=== PATIENT | female | born 1970 | race Caucasian/White ===

== ENCOUNTER 2018-12-28 07:43 | Day surgery (SDC) | payer OTHER ==
[~2018-12-28 07:43] MED LIST: Bupivacaine 0.5% 50 ML MDV ONE; Lidocaine 1% with EPINEPHrine 1:100,000 50 ML MDV ONE
[2018-12-28] MEDS ORDERED: Acetaminophen 500 MG Tab PO ONE (07:45)
[2018-12-28] MEDS ORDERED: Albuterol/Ipratropium 3.0-0.5 MG/3 ML Neb Soln NEB ONE (07:45)
[2018-12-28] MEDS ORDERED: ceFAZolin 2 GM in Premix Bag 1 BAG IV ONE (07:45)
[2018-12-28] MEDS ORDERED: Dextrose 5%-Lactated Ringers 1,000 ML IV SCH (07:45)
[2018-12-28] MEDS ORDERED: Propofol 200 MG/20 ML SDV ONE ×4 (08:05→10:02)
[2018-12-28] MEDS ORDERED: Midazolam 1 MG/ML 2 ML SDV ONE ×2 (08:06→09:23)
[2018-12-28] MEDS ORDERED: fentaNYL 100 MCG/2 ML SDV ONE ×2 (08:06→09:42)
[2018-12-28] MEDS ORDERED: Ketorolac 60 MG/2 ML SDV ONE (09:42)
[2018-12-28] MEDS ORDERED: hydrOXYzine HCl 100 MG/2 ML SDV IM ONE (10:31)
[2018-12-28] MEDS ORDERED: Acetaminophen/oxyCODONE 325-5 MG Tab PO ONE (11:09)
--- NOTE | 2018-12-31 11:16 | OR ---
DATE OF PROCEDURE: 12/28/2018 SURGEON: Viktor Walker MD PREOPERATIVE DIAGNOSIS: Right inguinal hernia with chronic right groin pain. POSTOPERATIVE DIAGNOSIS: Incarcerated right inguinal hernia (direct) with chronic right groin pain. OPERATIVE PROCEDURES: Right inguinal exploration with: 1. Repair of incarcerated inguinal hernia with mesh-plug technique (18356). 2. Triple neurectomy. a. Excision of iliohypogastric nerve (48683). b. Division of ilioinguinal nerve (47783). c. Excision of genital branch of genitofemoral nerve (27033). ANESTHESIA: Local plus IV sedation. INDICATIONS FOR PROCEDURE: This is a 48-year-old presenting with chronic right groin pain. Workup thus far has been negative. On examination, she does appear to have a small inguinal hernia with quite a bit in the way of focal pain in area more or less at the level of the external ring, extending slightly onto the inguinal floor. The plan at this point is to proceed with an inguinal exploration with the intention of identifying and repairing any hernias that could be confirmed and then proceed with a triple neurectomy, dividing iliohypogastric, ilioinguinal, and genital branch of genitofemoral nerves on that side to minimize postoperative pain. Potential risks of the procedure including bleeding, infection, possible recurrence of the hernia, as well as significant likelihood of some persistent postoperative pain, i.e. the procedure was by no means predicted to be 100% effective, but hopefully it will be significantly helpful. DETAILS OF PROCEDURE: The patient was taken to the operating room and placed in a supine position. After IV sedation was administered, the abdomen and groin areas were prepped and draped. The right inguinal area was anesthetized with 1% lidocaine mixed with Marcaine, and a standard right inguinal incision was made and carried down through the skin and subcutaneous tissue. External oblique aponeurosis was then divided and subhepatic flaps raised superiorly and inferiorly. The patient was noted to have an area of incarcerated fat in the area of the external ring, this being a direct hernia extending somewhat through the external ring. This was reduced at this point and transversalis fascia overlying incised, and a large mesh plug was then placed into the defect. The conjoint tendon was dissected underneath it with a good edge of the conjoint tendon on its underside being exposed medially, superiorly, and laterally. Prior to fixation of the mesh, we did palpate to make sure there was no femoral hernia, and no femoral hernia was identifiable. The mesh was then affixed to the Jhonathan's ligament with titanium tacking screws. At this point, the round ligament was excised for the point where it exited the external ring upward to the internal ring. This could potentially include the genital branch of the genitofemoral nerve, although, an additional nerve running medially along its course of the round ligament was also identified and subsequently excised. The mesh was then affixed to the conjoint tendon medially, superiorly, and laterally with horizontal mattress sutures of 0 Vicryl stitch, and the conjoint tendon was then affixed to the shelving portion of the inguinal ligament for its length, thus completely closing off the internal hernia as well with a 0 Vicryl stitch. At this point, sequentially, the iliohypogastric, ilioinguinal, and what appeared to be the genital branch of the genitofemoral nerve were each identified and excised away from the inguinal floor to the lateral-most point of the incision and sent as pathologic specimens. The flat portion of the mesh-plug system was cut so that there was a gentle contour over the inguinal floor. This was affixed to the pubic tubercle with titanium tacking screw. Then, over this, the external oblique aponeurosis was approximated with 3-0 Vicryl stitch, the subcutaneous tissue with 4-0 Vicryl stitch, and the skin with a 4-0 Vicryl subcuticular stitch. Dressing was applied. The patient was taken to the recovery room in a satisfactory condition. There were no evident complications. Viktor Walker MD /[id number]
== END 2018-12-28 12:15 | disposition home or self-care (01) ==
LOC: JP.SDS 07:43
PROVIDERS: ATTEND Surgery
DX: K40.30 Unilateral inguinal hernia, with obstruction, without gangrene, not specified as recurrent (principal); F32.9 Major depressive disorder, single episode, unspecified; Z98.84 Bariatric surgery status
CPT/HCPCS: 36415; 49507; 64772; 80048; 83970; 84100; A9270; C1713; C1781; J0690; J1885; J2250; J2704; J3010; J3410; J3490; J7042; 88302; 88305; J7620-GY